=== PATIENT | male | born 1945 | race Caucasian/White ===

== ENCOUNTER 2017-01-06 12:32 | Inpatient (IN) | payer MEDICARE ==
[~2017-01-06] VITALS: Ht 165.1 cm; Wt 67.2 kg
--- NOTE | ~2017-01-06 | WRIGHTHP ---
[place], [place] PATIENT HISTORY AND PHYSICAL EXAM NAME: SAADIA VALADEZ [facility] #: [id number] UNIT #: [id number] ROOM: 415 DOCTOR: MERRY EAST MD BIRTHDATE: [birth year] DOS: 01/06/2017 HISTORY OF PRESENT ILLNESS: The patient is a 71-year-old gentleman with a past medical history of: 1. Severe underlying COPD and chronic respiratory failure with oxygen dependence. 2. Diastolic type congestive heart failure. 3. Benign essential hypertension. 4. History of rheumatoid arthritis. 5. Benign essential hypertension. 6. 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 7. Advanced COPD. The patient presented to the Emergency Department with 3-day complaints of increasing shortness of breath, cough, and wheezing. The patient was seen by Dr. Richard Goodman in the Emergency Department, and after initial treatment with antibiotic, oxygen, and nebulizer treatment, he was recommended for admission and further management. After admission, the patient stated he has some pain in his right lower ribs with coughing and he has been wheezing and short of breath for about 3 days. No other GI or urinary symptoms. No dizziness or fainting episodes. REVIEW OF SYSTEMS: LUNGS: Increasing shortness of breath and wheezing and cough. GASTROINTESTINAL: No nausea, vomiting, diarrhea, or constipation. CARDIOVASCULAR: No chest pain except for some pain in the right lower ribs with cough only. No palpitations. FAMILY HISTORY: Noncontributory. ALLERGIES: KNOWN ALLERGIES TO PENICILLIN AND IBUPROFEN. HOME MEDICATIONS: Omeprazole, lisinopril, amlodipine, latanoprost eyedrops, prednisone, DuoNeb. PHYSICAL EXAMINATION: GENERAL: Alert, oriented x 3, weak looking, emaciated. HEENT AND NECK: Extraocular movements are intact. Sclerae are anicteric. Oral mucosa is moist and clean. No obvious facial weakness. Neck is supple without any lymphadenopathy. No thyromegaly. No JVD. No carotid arterial bruits. LUNGS: Decreased breath sounds and expiratory wheezing on lung auscultation. CARDIOVASCULAR SYSTEM: Heart rate is regular in rate and rhythm. S1 and S2 normally audible. No significant murmur or any other abnormal cardiac sounds. ABDOMEN: Soft, nontender. No obvious organomegaly. Bowel sounds are present. No obvious herniation. EXTREMITIES: Without significant cyanosis or edema. Warm to touch. CENTRAL NERVOUS SYSTEM: Alert and oriented x 3. Cranial nerves II-XII are intact. Speech is normal. The patient is able to move all extremities. Normal muscle strength. Deep tendon reflexes are equal on both sides. Plantars were downgoing. [place], [place] PATIENT HISTORY AND PHYSICAL EXAM NAME: SAADIA VALADEZ UNIT #: [id number] ROOM: 415 DOCTOR: MERRY EAST MD BIRTHDATE: [birth year] LABORATORY DATA: Chest x-ray without acute abnormality, just showing COPD. No pneumonic infiltrates. Normal serum electrolytes, bilirubin, and liver enzymes. PT, PTT were baseline. IMPRESSION: 1. The patient with acute over chronic respiratory failure with exacerbation of severe underlying chronic obstructive pulmonary disease with oxygen dependence. Will be treated with DuoNeb, oxygen, Solu-Medrol, and azithromycin, and he will be monitored closely on the intermediate monitored bed. 2. Generalized disability and failure to thrive. We will take bedsore precautions, use air mattress, every 2-hour turning, take fall precautions, and consult physical therapy. 3. Rheumatoid arthritis. The patient on methotrexate, which will be held back for now because of his acute infection until it resolves. 4. Benign essential hypertension. Blood pressures to be monitored and treated. 5. Gastroesophageal reflux disease and esophagitis, asymptomatic. No heartburns. The patient takes omeprazole, which was continued. MERRY EAST MD CM:HISPHYS:PATIENT HISTORY AND PHYSICAL EXAMINATION [id number] MERRY EAST MD 01/06/17 1606 interface
--- NOTE | ~2017-01-06 | DS ---
[place], [place] DISCHARGE SUMMARY NAME: SAADIA VALADEZ [facility] #: [id number] UNIT #: [id number] ROOM: 415 DOCTOR: MERRY EAST MD BIRTHDATE: [birth year] Admitted: 01/06/17 Discharged: 01/11/17 DISCHARGE DIAGNOSES: 1. Exacerbation of severe underlying chronic obstructive pulmonary disease, improved with treatment. 2. Acute over chronic respiratory failure as mentioned above. 3. Rheumatoid arthritis. 4. Acute sinusitis, improving with treatment. 5. Acute maxillary sinusitis. 6. Benign essential hypertension. 7. Generalized disability, advanced lung disease and adult failure to thrive, gastroesophageal reflux disease and esophagitis. 8. Diastolic type congestive heart failure, compensated. 9. Bullous disease of the right lower lung, chronic related to chronic obstructive pulmonary disease. 10. Benign essential hypertension. HOSPITAL COURSE: 1. The patient presented to the Emergency Department with 3 days, complains of some increasing shortness of breath, cough, wheezing and was seen by Dr. Goodman in the ER. The patient was diagnosed as having acute over chronic respiratory failure with exacerbation of chronic obstructive pulmonary disease and was started on treatment with corticosteroids, oxygen, nebulizer treatments, and antibiotics and he gradually improved. The patient was started on physical therapy and he was able to ambulate independently in the hallways. The patient's breathing has gradually improved with treatment and finally he is going home on tapering down dose of corticosteroids and doxycycline and to be seen by his PCP, Dr. Rees on Monday. 2. Diastolic type CHF, compensated. Serum electrolytes, BUN, and creatinine were monitored. 3. Benign essential hypertension with controlled blood pressures all treatment was continued. 4. Gastroesophageal reflux disease and esophagitis, asymptomatic with treatment. 5. The patient has advanced lung disease and failure to thrive; recurrent admissions are possible for the same diagnosis because of advanced disability and advanced lung disease. LABORATORY DATA: Hemoglobin of 14, white cell count of 5000, no left shift. Blood cultures were negative. Sputum cultures were also negative except for yeast. DISCHARGE MANAGEMENT: Metoprolol 12.5 mg b.i.d., amlodipine 10 mg a day, prednisone 5 mg a day, lisinopril 20 mg a day, omeprazole 20 mg a day, Medrol Dosepak, latanoprost eye drops one drop each eye at bedtime, DuoNeb every 6 hours. The patient also seen by his medical records clerk, Dr. Call, who recommended a cardiac stress test but the patient refused it and now it will be scheduled as an outpatient when he follows up with his PCP, Dr. Alecia Rees and he will also follow up with his medical records clerk, Dr. Call, who will arrange for the cardiac stress test. The patient is presently asymptomatic, no chest pains and I also asked him to return immediately to the ER if he develops any chest tightness, pain or chest discomfort. [place], [place] DISCHARGE SUMMARY NAME: SAADIA VALADEZ UNIT #: [id number] ROOM: 415 DOCTOR: MERRY EAST MD BIRTHDATE: [birth year] MERRY EAST MD CM:DISCHARG [id number] MERRY EAST MD 01/12/17 1735 CARLITO COLVIN MIS.R
--- NOTE | ~2017-01-06 | PR ---
[place], [place] PROGRESS NOTE NAME: SAADIA VALADEZ UNIT #: [id number] ROOM: 415 DOCTOR: MERRY EAST MD BIRTHDATE: [birth year] DOS: 01/09/2017 SUBJECTIVE: The patient is improving, but still short of breath and wheezing. OBJECTIVE: VITAL SIGNS: Blood pressure 149/76, heart rate 93 beats per minute, breathing 21 times per minute, temperature 98 degrees Fahrenheit. GENERAL APPEARANCE: The patient is alert and oriented x 3, in no visible distress. Generalized weakness, HEENT AND NECK: Exam within normal limits. CARDIOVASCULAR SYSTEM: Heart rate is regular in rate and rhythm. S1 and S2 normally audible. LUNGS: Expiratory wheezing. ABDOMEN: Soft, nontender. No obvious organomegaly. Bowel sounds are present. EXTREMITIES: Without significant cyanosis or edema. IMPRESSION: 1. The patient with acute over chronic respiratory failure with exacerbation of severe underlying chronic obstructive pulmonary disease with wheezing, is improving, but he is not ready for discharge to home yet. I will give him 1 more day of continued treatment with DuoNebs, Solu-Medrol and antibiotics. 2. Rheumatoid arthritis. The patient's methotrexate has been put on hold because of his present infection. 3. Diastolic type congestive heart failure, compensated. 4. Gastroesophageal reflux disease and esophagitis, asymptomatic. 5. Generalized disability and failure to thrive. The patient ambulating in the hallways to maintain his strength. 6. Benign essential hypertension treated and controlled. 7. Acute sinusitis, being treated with antibiotics. MERRY EAST MD CM:PNTRANS [phone] MERRY EAST MD 01/10/178 interface
--- NOTE | ~2017-01-06 | PR ---
[place], [place] PROGRESS NOTE NAME[id number] UNIT #: [id number] ROOM: 415 DOCTOR: MERRY EAST MD BIRTHDATE: [birth year] DOS: 01/07/2017 SUBJECTIVE: The patient is complaining of some nasal and sinus congestion, otherwise his breathing is gradually improving. OBJECTIVE: VITAL SIGNS: Blood pressure 157/71, heart rate of 85 beats per minute, breathing 18 times per minute, temperature 98 degrees Fahrenheit. GENERAL APPEARANCE: The patient is alert and oriented x 3, in no visible distress. Generalized weakness. HEENT AND NECK: Exam within normal limits. LUNGS: Somewhat decreased breath sounds, slight expiratory wheezing on lung auscultation. CARDIOVASCULAR SYSTEM: Heart rate is regular in rate and rhythm. S1 and S2 normally audible. ABDOMEN: Soft, nontender. No obvious organomegaly. Bowel sounds are present. EXTREMITIES: Without significant cyanosis or edema. IMPRESSION: 1. The patient with acute over chronic respiratory failure with exacerbation of severe underlying chronic obstructive pulmonary disease, being treated with DuoNebs, oxygen, Solu-Medrol and azithromycin. He is clinically improving. 2. The patient with acute sinusitis which is being covered with antibiotics. 3. Rheumatoid arthritis. The patient was taken off methotrexate while he is being treated for infection and bronchitis. 4. Benign essential hypertension with somewhat elevated blood pressures. The patient is presently taking lisinopril and amlodipine. I will increase the dose of amlodipine to 5 mg a day to better control his blood pressures. 5. Generalized disability, weakness and adult failure to thrive. We are taking bedsore precautions. 6. Gastroesophageal reflux disease and esophagitis, asymptomatic. 7. Diastolic type congestive heart failure, compensated. MERRY EAST MD CM:PNTRANS [phone] MERRY EAST MD 01/08/17149 interface
--- NOTE | ~2017-01-06 | CON ---
[place], [place] REPORT OF CONSULTATION NAME: SAADIA VALADEZ [facility] #: [id number] UNIT #: [id number] ROOM: 415 [facility] [birth year] DOS: 01/10/2017 HISTORY OF PRESENT ILLNESS: The patient is a 71-year-old gentleman. I was consulted because the patient had 3-5 beat run of ventricular tachycardia, asymptomatic yesterday. The patient does have a history of bullous disease of the right lower lobe of the lung, advanced COPD, benign hypertension, history of rheumatoid arthritis and history of diastolic heart failure. The patient was totally asymptomatic with this. He was admitted on 01/06/2017 with severe COPD exacerbation and is being treated for the same thing. The patient refuses to have any kind of stress test at this point. He says that he does have a history previously of irregular heartbeat. He used to smoke about 3 packs per day and has cut down since. PAST MEDICAL HISTORY: Advanced COPD, hypertension, hyperlipidemia, diastolic type of heart failure, bullous disease of the right lower lobe. HOME MEDICATIONS: Omeprazole, lisinopril, amlodipine, prednisone and DuoNeb. FAMILY HISTORY: Noncontributory. ALLERGIES: PENICILLIN and IBUPROFEN. REVIEW OF SYSTEMS: CONSTITUTIONAL: No fever, no chills. HEENT: No visual disturbances or hearing problems. CARDIOVASCULAR: No chest discomfort. GASTROINTESTINAL: No nausea, no vomiting. GENITOURINARY SYSTEM: No dysuria, hematuria. RESPIRATORY: Does have significant shortness of breath and dyspnea on exertion and wheezing. PHYSICAL EXAMINATION: GENERAL: The patient is alert, oriented x3. HEENT: Unremarkable. VITAL SIGNS: Blood pressure is 140/80. NECK: Supple, no JVD. LUNGS: Extremely diminished air entry. HEART: Heart sounds are regular. Urine output is adequate. ABDOMEN: Soft. NEUROLOGICAL: Stable. LABORATORY DATA: Hemoglobin 14, hematocrit 48.1. Electrolytes are pending today. The last BUN and creatinine was within normal limits. EKG shows right bundle branch block with nonspecific ST-T changes. IMPRESSION: The patient with a few runs of ventricular tachycardia, hypertension, tobacco abuse, hyperlipidemia, was strongly recommend a Lexiscan Cardiolite stress test. The last echocardiogram done by me showed well-preserved systolic function. [place], [place] REPORT OF CONSULTATION NAME: SAADIA VALADEZ UNIT #: [id number] ROOM: 415 DOCTOR: SAMANTHA ALEXANDER MD BIRTHDATE: [birth year] RECOMMENDATIONS: Add a small dose of beta blockers to the current regimen. Selective beta blockers because of severe chronic obstructive pulmonary disease like metoprolol 12.5 b.i.d. Add a baby aspirin to the current regimen. The patient is refusing a stress test. Check electrolytes and magnesium, and we will follow up. SAMANTHA ALEXANDER MD CM:CONSTR:REPORT OF CONSULTATION 0738 01/10/17 0844 interface
--- NOTE | ~2017-01-06 | PN ---
[place], [place] PROGRESS NOTE NAME[id number] UNIT #: [id number] ROOM: 415 DOCTOR: MERRY EAST MD BIRTHDATE: [birth year] DATE: 01/10/17 SUBJECTIVE: The patient is breathing better, but still has wheezing. OBJECTIVE: VITAL SIGNS: Blood pressure 134/70, heart rate of 86 beats per minute, breathing is 19 times per minute, temperature 98 degrees Fahrenheit. LUNGS: Mild expiratory wheezing. GENERAL APPEARANCE: The patient is alert and oriented x 3, in no visible distress. HEENT AND NECK: Exam within normal limits. CARDIOVASCULAR SYSTEM: Heart rate is regular in rate and rhythm. S1 and S2 normally audible. ABDOMEN: Soft, nontender. No obvious organomegaly. Bowel sounds are present. EXTREMITIES: Without significant cyanosis or edema. IMPRESSION: 1. Exacerbation of severe underlying chronic obstructive pulmonary disease with chronic shortness of breath, acute over chronic respiratory failure, sputum cultures have been negative, blood cultures also have been negative. The patient's breathing has gradually been improving and hopefully I will be able discharge him to home tomorrow after treatment with corticosteroids, bronchodilator, antibiotics and oxygen. The patient has been ambulating in the hallways. 2. Benign essential hypertension with controlled blood pressures with metoprolol and amlodipine and he also takes lisinopril. 3. Gastroesophageal reflux disease and esophagitis, asymptomatic with omeprazole. MERRY EAST MD CM:PNTRANS [phone] MERRY EAST MD 01/12/171755 CARLITO COLVIN.ANANDR
--- NOTE | ~2017-01-06 | PR ---
[place], [place] PROGRESS NOTE [id number] UN[facility] #: [id number] ROOM: 415 DOCTOR: MERRY EAST MD BIRTHDATE: [birth year] DOS: 01/08/2017 SUBJECTIVE: The patient still has wheezing and some shortness of breath, although overall he is improving. OBJECTIVE: VITAL SIGNS: Blood pressure 141/69, heart rate 94 beats per minute, breathing 20 times per minute, temperature 98 degrees Fahrenheit. GENERAL APPEARANCE: The patient is alert and oriented x 3, in no visible distress. HEENT AND NECK: Exam within normal limits. CARDIOVASCULAR SYSTEM: Heart rate is regular in rate and rhythm. S1 and S2 normally audible. LUNGS: Expiratory wheezing on lung auscultation and somewhat decreased breath sounds. ABDOMEN: Soft, nontender. No obvious organomegaly. Bowel sounds are present. EXTREMITIES: Without significant cyanosis or edema. IMPRESSION: 1. Sputum cultures growing normal bacteria. Blood cultures have been negative. 2. Acute over chronic respiratory failure with exacerbation of severe underlying chronic obstructive pulmonary disease being treated with antibiotics, Solu-Medrol, oxygen, DuoNebs and he is clinically improving, but he is still not at his baseline yet. 3. Rheumatoid arthritis. The patient normally on methotrexate, which was stopped because of his infection. 4. Acute sinusitis being covered with antibiotics. 5. Benign essential hypertension with controlled blood pressure with treatment. 6. Generalized disability with adult failure to thrive. The patient working with physical therapy. 7. Gastroesophageal reflux disease and esophagitis, asymptomatic. 8. Diastolic type congestive heart failure, compensated. MERRY EAST MD CM:PNTRANS [phone] MERRY EAST MD 01/09/17 0337 interface
[~2017-01-06 12:32] MED LIST: ADVAIR 250/501 EA INH; ALEVE220 MG PO; AVPAK AZITHROM250 M1 PO; AZO-SULFISOXAZO1 TA1 PO; BACTRIM DS 8001 TA1 PO; CIPRO500 MG PO; DELTASONE10 MG PO; DELTASONE2.5 M1 PO; DELTASONE5 MG PO; DOK100 MG PO; DOXYCYCLINE HY100 M5 PO; DOXYCYCLINE100 MG PO; DUONEB 3 MG/3 ML3 M1 INH; FENTANYL12 MCG/HR T; FLEXERIL10 MG PO; FOLIC ACID1 MG PO; HUMIRA40 MG/0.1 SC; HYCODAN,HYDROME10 ML PO; HYDR25T; HYDROXYCHLOROQ200 M1 PO; K-Dur 20MEQ20 MEQ PO; LASIX20 MG PO; LASIX40 MG PO; LEVOFLOXACIN500 MG PO; LEXAPRO10 MG PO; LIDODERM 5% PATC1 EA T; LISINOPRIL20 MG PO; MEDROL DOSEPAK4 MG PO; METHOTREXATE S2.5 MG PO; METHOTREXATE2.5 M1 PO; NORCO 325 MG-51 TAB PO; NORVASC2.5 MG PO; OXYCODONE AND A1 TAB PO; OXYGEN NAS; PEPCID20 MG PO; PERCOCET 325 MG1 TA2 PO; PERCOCET 325 MG1 TA5 PO; PLAQUENIL200 MG PO; PREDNICOT10 MG PO; PREDNICOT20 MG PO; PREDNISONE10 MG PO; PREDNISONE5 MG PO; PRILOSEC20 MG PO; TREXALL10 MG PO; TYLENOL ARTHRI650 M1 PO; TYLENOL WITH CO1 TA1 PO; VENTOLIN 02.5 MG/3 M INH; Ventolin 02.5 MG/3 M INH; XALATAN 0.005%2.5 ML INTRAOC; [UNRECOGNIZED DRUG - OTHER] IM
[2017-01-06 12:44] VITALS: BP 162/78
[2017-01-06 13:02] LABS: BASO # 0.1 10*3/uL (0.0-0.1); BASO % 0.7 % (0.0-1.0); EOS # 0.1 10*3/uL (0.0-0.4); EOS % 0.6 % (1.0-4.0); HEMATOCRIT 44.9 % (42.0-52.0); HEMOGLOBIN 14.9 g/dl (14.0-18.0); LYMPH # 1.7 10*3/uL (1.3-4.4); LYMPH % 17.5 % (27.0-41.0); MEAN CELL VOLUME 94.1 fl (80.0-94.0); MEAN CORPUSCULAR HGB 31.2 pg (27.0-31.0); MEAN CORPUSCULAR HGB CONC 33.2 g/dl (33.0-37.0); MEAN PLATELET VOLUME 8.8 fl (9.6-12.3); MONO # 0.5 10*3/uL (0.1-1.0); MONO % 5.2 % (3.0-9.0); NEUT # 7.3 10*3/uL (2.3-7.9); NEUT % 75.8 % (47.0-73.0); PLATELET COUNT AUTOMATED 265 10*3/uL (130-400); RED BLOOD COUNT 4.77 10*6/uL (4.50-5.90); RED CELL DISTRI WIDTH 14.3 % (0-14.5); WHITE BLOOD COUNT 9.7 10*3/uL (4.8-10.8)
[2017-01-06 13:11] LABS: PROTHROMBIN TIME 10.8 SECONDS (9.0-12.4)
[2017-01-06 13:17] LABS: ALBUMIN 3.6 gm/dl (3.1-4.5); ALKALINE PHOSPHATASE 70 U/L (45-117); BILIRUBIN, TOTAL 0.4 mg/dl (0.2-1.0); BUN 10 mg/dl (7-24); C-REACTIVE PROTEIN 1.16 MG/DL (0-0.3); CARBON DIOXIDE 26 mmol/L (21-32); CHLORIDE 104 mmol/L (98-107); CKMB 1.4 ng/ml (0.5-3.6); CPK 51 U/L (39-308); EST GLOM FILT AFRICAN AMERICAN > 60 ml/min; GLUCOSE 100 mg/dL (65-99); POTASSIUM 4.4 mmol/L (3.5-5.1); SGOT/AST 15 IU/L (3-35); SGPT/ALT 18 U/L (12-78); SODIUM 138 mmol/L (136-145); TOTAL PROTEIN 6.8 gm/dL (6.4-8.2)
[2017-01-06 13:20] LABS: TROPONIN I < 0.015 ng/ml (<0.045)
[2017-01-06 13:30] VITALS: BP 157/81
[2017-01-06 14:00] VITALS: BP 176/90
[2017-01-06] MEDS ORDERED: PREDNISONE5 MG PO (15:31)
[2017-01-06 16:38] VITALS: BP 156/87
[2017-01-06 20:00] VITALS: BP 160/89
[2017-01-07] VITALS: BP 168/78
[2017-01-07 06:23] LABS: BASO % 0.2 % (0.0-1.0); HEMATOCRIT 42.8 % (42.0-52.0); LYMPH # 1.2 10*3/uL (1.3-4.4); LYMPH % 25.1 % (27.0-41.0); MEAN CELL VOLUME 94.1 fl (80.0-94.0); MEAN CORPUSCULAR HGB 30.8 pg (27.0-31.0); MEAN CORPUSCULAR HGB CONC 32.7 g/dl (33.0-37.0); MONO # 0.2 10*3/uL (0.1-1.0); NEUT # 3.3 10*3/uL (2.3-7.9); NEUT % 70.5 % (47.0-73.0); PLATELET COUNT AUTOMATED 256 10*3/uL (130-400); RED BLOOD COUNT 4.55 10*6/uL (4.50-5.90); WHITE BLOOD COUNT 4.7 10*3/uL (4.8-10.8)
[2017-01-07 08:00] VITALS: BP 175/86
[2017-01-07 12:00] VITALS: BP 160/62
[2017-01-07 16:00] VITALS: BP 157/71
[2017-01-07 20:00] VITALS: BP 148/69
[2017-01-08] VITALS: BP 167/71
[2017-01-08 08:00] VITALS: BP 150/62
[2017-01-08 12:00] VITALS: BP 141/69
[2017-01-08 16:00] VITALS: BP 155/71
[2017-01-08 20:00] VITALS: BP 155/77
[2017-01-09] VITALS: BP 149/76
[2017-01-09 08:00] VITALS: BP 167/71
[2017-01-09 12:00] VITALS: BP 147/65
[2017-01-09 16:00] VITALS: BP 156/55
[2017-01-09 20:00] VITALS: BP 149/75
[2017-01-10] VITALS: BP 140/80
[2017-01-10 08:00] VITALS: BP 166/80
[2017-01-10 08:05] LABS: MAGNESIUM 2.3 mg/dL (1.5-2.1); POTASSIUM 4.2 mmol/L (3.5-5.1)
[2017-01-10 12:00] VITALS: BP 134/70
[2017-01-10 16:00] VITALS: BP 136/66
[2017-01-10 20:00] VITALS: BP 142/68
[2017-01-11] VITALS: BP 135/70
[2017-01-11 08:00] VITALS: BP 154/83
[2017-01-11] MEDS ORDERED: MEDROL DOSEPAK4 MG PO (10:35)
[2017-01-11 12:00] VITALS: BP 154/80
== END 2017-01-11 13:16 | disposition home or self-care (01) | DRG 871 ==
LOC: ED 12:32 → 4E 13:53 → EDHOLD 13:53 → 4E 14:19
PROVIDERS: Emergency Medicine; Internal Medicine; Internal Medicine Cardiovascular Disease
DX: A41.9 Sepsis, unspecified organism (principal); J18.9 Pneumonia, unspecified organism; J96.20 Acute and chronic respiratory failure, unspecified whether with hypoxia or hypercapnia; I11.0 Hypertensive heart disease with heart failure; I50.30 Unspecified diastolic (congestive) heart failure; Z99.81 Dependence on supplemental oxygen; J44.0 Chronic obstructive pulmonary disease with (acute) lower respiratory infection; J44.1 Chronic obstructive pulmonary disease with (acute) exacerbation; M06.9 Rheumatoid arthritis, unspecified; J01.00 Acute maxillary sinusitis, unspecified; E78.5 Hyperlipidemia, unspecified; R62.7 Adult failure to thrive; K21.0 Gastro-esophageal reflux disease with esophagitis; Z88.0 Allergy status to penicillin; Z88.6 Allergy status to analgesic agent; Z79.899 Other long term (current) drug therapy

== ENCOUNTER → 2017-03-08 | Day surgery (SDC) | payer MEDICARE ==
--- NOTE | ~2017-03-08 | O ---
[place], [place] OPERATIVE NOTE NAME: SAADIA VALADEZ [facility] UNIT #: [id number] ROOM: DOCTOR: ELVIRA MITCHELL MD BIRTHDATE: [birth year] DOS: 03/08/2017 PREOPERATIVE DIAGNOSIS: Cataract, left eye. POSTOPERATIVE DIAGNOSIS: Cataract, left eye. OPERATION: Extracapsular cataract extraction by phacoemulsification with posterior chamber intraocular lens implantation, left eye. ANESTHESIA: Monitored standby. OPERATIVE FINDINGS AND PROCEDURE: 2% Xylocaine topical anesthetic gel was applied to the eye in the preop area. The patient was taken to the operating room and prepped and draped in the standard fashion for sterile intraocular surgery. A time out procedure was performed verifying correct patient, correct site and corrects lens with Virginie Mitchell M.D. The operating microscope was swung into position and the lid speculum was inserted. Using a Asiya paracentesis blade, a paracentesis was made through clear cornea. Viscoelastic was used to fill the anterior chamber. Using a metal keratome a 2.4 mm self-sealing clear corneal cataract incision was made temporally at the limbus. Using a pre-bent 25 gauge cystotome needle, a standard continuous curvilinear capsulorrhexis was performed. The anterior capsule was removed with forceps. The lens nucleus was hydrodissected and phacoemulsified in the posterior chamber. Cortical material was removed with the irrigation aspiration hand piece and the posterior capsule was then polished with a curet under irrigation. The posterior chamber and capsular bag were filled with viscoelastic. A posterior chamber intraocular lens manufactured by: [employer], Model #[id number], and 23.0 diopters in strength were then inserted into the posterior chamber and within the capsular bag using the lens cartridge and injector system. Viscoelastic was removed using the irrigation aspiration handpiece. The anterior chamber was filled with balanced salt solution through the paracentesis. Both the paracentesis site and cataract incisions were hydrated with BSS and verified to be water-tight and self-sealing. The incision checked to be water-tight using a Weck-Kaela sponge. The integrity of the cataract wound and ocular tension were checked. Lid speculum and drapes were removed. The patient was transferred from the operating room to the recovery room in satisfactory condition. [place], [place] OPERATIVE NOTE NAME: SAADIA VALADEZ UNIT #: [id number] ROOM: DOCTOR: ELVIRA MITCHELL MD BIRTHDATE: [birth year] ELVIRA MITCHELL MD CM:OPRECORD:OPERATIVE NOTE [id number] ELVIRA MITCHELL MD 03/08/17 1802 interface
[2017-03-08 12:05] VITALS: BP 143/68
== END | disposition home or self-care (01) ==
LOC: SDC 03-07 14:00
DX: H26.9 Unspecified cataract (principal); I10 Essential (primary) hypertension; J44.9 Chronic obstructive pulmonary disease, unspecified; M06.9 Rheumatoid arthritis, unspecified; I50.9 Heart failure, unspecified; Z86.14 Personal history of Methicillin resistant Staphylococcus aureus infection; Z98.890 Other specified postprocedural states; Z82.49 Family history of ischemic heart disease and other diseases of the circulatory system; F17.210 Nicotine dependence, cigarettes, uncomplicated

== ENCOUNTER 2017-10-26 12:48 | Inpatient (IN) | payer MEDICARE ==
[~2017-10-26] VITALS: Ht 160 cm; Wt 60.0 kg
--- NOTE | ~2017-10-26 | WRIGHTHP ---
[place], [place] PATIENT HISTORY AND PHYSICAL EXAM NAME: SAADIA VALADEZ [facility] #: [id number] UNIT #: [id number] ROOM: 412 DOCTOR: RAÚL OLIVEIRA MD BIRTHDATE: [birth year] DOS: 10/26/2017 HISTORY OF PRESENT ILLNESS: The patient is 72 years old. The patient comes in with complaints of abdominal pain. The patient says that yesterday morning he woke up and had severe abdominal pain, mostly in the left side of the abdomen. Whenever he coughs, this pain was getting worse and he had a lump in the lower part of his abdomen, so he got worried and decided to come in. He denies having any chest pains, palpitations, shortness of breath. Does not have any fever or chills. He has not been eating any corn or popcorn for the last few days. After he came to the Emergency Room, he received some pain medications and his pain has resolved. He does not have any pain this morning and he is hungry and wants to eat. PAST MEDICAL HISTORY: Significant for: 1. Multiple hospitalizations, the last one was in 2017 with acute exacerbation of chronic obstructive pulmonary disease. 2. History of respiratory failure. 3. Rheumatoid arthritis. 4. Benign hypertension. 5. Gastroesophageal reflux disease. 6. History of compression fractures of the lumbar vertebrae with chronic back pain. MEDICATIONS: He is currently on breathing treatments with DuoNeb q. 4 hours., amlodipine 2.5 daily, folic acid 1 mg daily, gabapentin 300 mg at bedtime, lisinopril 20 daily, methotrexate, Prilosec 20 daily, prednisone 5 mg daily. SOCIAL HISTORY: Significant for smoking history of about half a pack of cigarettes a day. Denies using any alcohol. He lives at home alone. PHYSICAL EXAMINATION: VITAL SIGNS: Blood pressure is 153/69, pulse of 90, respirations 20, temperature 98.4. LUNGS: Diminished breath sounds. No wheezes, rales or rhonchi heard. HEART: Regular. ABDOMEN: Soft, nontender. Bowel sounds are present. EXTREMITIES: Without any edema. LABORATORY DATA: White cell count is 12.9 on admission. Urinalysis was positive for infection, which is reflux. Comprehensive was within normal limits. Lipase is normal. CT of the abdomen and pelvis shows diverticulosis of the sigmoid colon and pneumoperitoneum of the right upper quadrant anterior to the liver margin. ASSESSMENT AND PLAN: 1. The patient presents with acute abdominal pain, possible early mild diverticulitis, especially with the white cell count elevation. The patient is placed on IV antibiotics and kept n.p.o. 2. Possibility of pneumoperitoneum. Acute abdominal series will be ordered. Consultation with surgery obtained. I have ordered his home medications, but [place], [place] PATIENT HISTORY AND PHYSICAL EXAM [facility]: [id number] UN[facility] #: [id number] ROOM: [facility] DOCTOR: RAÚL OLIVEIRA MD BIRTHDATE: [birth year] will hold off until his acute abdominal series comes clean. 3. Benign hypertension, controlled. RAÚL OLIVEIRA MD CM:HISPHYS:PATIENT HISTORY AND PHYSICAL EXAMINATION 0848 7 RAÚL OLIVEIRA MD 10/27/17 0907 interface
--- NOTE | ~2017-10-26 | DS ---
[place], [place] DISCHARGE SUMMARY [id number] UN[facility] #: [id number] ROOM: 412 DOCTOR: RAÚL OLIVEIRA MD BIRTHDATE: [birth year] DOS: 10/30/2017 DIAGNOSES: 1. Acute diverticulitis. 2. Pneumoperitoneum. 3. Chronic obstructive pulmonary disease. 4. Rheumatoid arthritis. 5. Benign hypertension. 6. History of compression fractures. MEDICATIONS ON DISCHARGE: Will be the same as in admission. The only new prescription given was Cipro 500 b.i.d. for 7 days and Flagyl 500 t.i.d. for 7 days. Rest of the home meds are lisinopril 20, folic acid 1 mg, DuoNeb q. 6 hours p.r.n., methotrexate 20 weekly, omeprazole 20 daily, amlodipine 2.5 daily, prednisone 5 daily, gabapentin 300 at bedtime, albuterol, ProAir 1 puff twice a day p.r.n., latanoprost eyedrops. HOSPITAL COURSE: This patient is very well known to us, comes in with complaints of quite a lot of abdominal pain. Please refer to H and P for details. After admission, the patient was placed on IV antibiotics. CT scan showed diverticulosis, but no acute diverticulitis was noted, but the patient had classic symptoms and signs on examination, so he was treated as a diverticulitis. A pneumoperitoneum was seen. Dr. Foley was consulted. Acute abdominal series was ordered, which was later canceled. The patient has had no changes of acute abdomen. Clinically, the patient is slowly improving without any new problems. White cell count has normalized. The plan therefore is to discharge him to home today to follow up as an outpatient. He will require a colonoscopy as an outpatient. RAÚL OLIVEIRA MD CM:DISCHARG [id number] RAÚL OLIVEIRA MD 10/30/17 0913 interface
--- NOTE | ~2017-10-26 | PR ---
[place], [place] PROGRESS NOTE [id number] UN[facility] #: [id number] ROOM: 412 DOCTOR: MERRY EAST MD BIRTHDATE: [birth year] DOS: 10/28/2017 SUBJECTIVE: The patient says he still has some left lower quadrant pains, but they continued to improve. OBJECTIVE: GENERAL APPEARANCE: The patient is alert and oriented x 3, in no visible distress. VITAL SIGNS: Blood pressure 140/70, heart rate 64 beats per minute, breathing 18 times per minute, temperature 98.4 degrees Fahrenheit. HEENT AND NECK: Exam within normal limits. CARDIOVASCULAR SYSTEM: Heart rate is regular in rate and rhythm. S1 and S2 normally audible. LUNGS: Clear to auscultation. ABDOMEN: Some left lower quadrant tenderness. EXTREMITIES: Without significant cyanosis or edema. IMPRESSION: 1. The patient with acute left lower quadrant abdominal pains and diverticulitis along with leukocytosis, is improving with treatment and intravenous antibiotics. Dr. Foley, the surgeon, is also following. 2. Benign essential hypertension with controlled blood pressures. 3. Left inguinal hernia, unobstructed, which required surgery, which needs to be electively scheduled later on. 4. CT of the abdomen and pelvis showing severe diverticulosis of the sigmoid colon. MERRY EAST MD CM:PNTRANS [id number] MERRY EAST MD 10/28/17 2311 interface
--- NOTE | ~2017-10-26 | PR ---
[place], [place] PROGRESS NOTE NAME: SAADIA VALADEZ [facility] #: [id number] UNIT #: [id number] ROOM: 412 DOCTOR: RAÚL OLIVEIRA MD BIRTHDATE: [birth year] DOS: SUBJECTIVE: The patient is doing fine this morning. He is walking around, ate good breakfast, minimal discomfort in the left lower quadrant. OBJECTIVE: VITAL SIGNS: Graphic trend shows pressure 154/80, pulse of 81, respirations 20, temperature 97.7. LUNGS: Diminished breath sounds, clear. HEART: Regular. ABDOMEN: Obese, soft, some minimal tenderness in the left lower quadrant. EXTREMITIES: Without any edema. ASSESSMENT AND PLAN: 1. Acute diverticulitis. Even though the CT scan is negative, the patient has classic symptoms and signs of diverticulitis for which he is already on antibiotics. Blood cultures have come back negative and white cell count is normalized. He does not have any fever, so the plan is to discharge him to home today on p.o. antibiotics. Avoid corn, popcorn etc. discussed with the patient. 2. Pneumoperitoneum. No further workup planned. 3. Rheumatoid arthritis, good pain control with methotrexate. RAÚL OLIVEIRA MD CM:PNTRANS [id number] RAÚL OLIVEIRA MD 10/30/17 0936 interface
--- NOTE | ~2017-10-26 | PR ---
[place], [place] PROGRESS NOTE [id number] UN[facility] #: [id number] ROOM: 412 DOCTOR: MERRY EAST MD BIRTHDATE: [birth year] DOS: SUBJECTIVE: The patient walking around the hallways and he is complaining of significant constipation. For last few days, he has not moved his bowels. OBJECTIVE: VITAL SIGNS: Blood pressure 125/59, heart rate 80 beats per minute, breathing 20 times per minute, temperature 98 degrees Fahrenheit. GENERAL APPEARANCE: The patient is alert and oriented x 3, in no visible distress. HEENT AND NECK: Exam within normal limits. CARDIOVASCULAR SYSTEM: Heart rate is regular in rate and rhythm. S1 and S2 normally audible. LUNGS: Clear to auscultation. ABDOMEN: Soft, nontender. No obvious organomegaly. Bowel sounds are present. EXTREMITIES: Without significant cyanosis or edema. IMPRESSION: 1. The patient with acute sigmoid diverticulitis with left lower quadrant pains, continues to improve with treatment. 2. Left inguinal hernia unobstructed. Dr. Foley plans to take him for surgery within the next few weeks. 3. Benign essential hypertension with controlled blood pressures. MERRY EAST MD CM:PNTRANS 00 10 MERRY EAST MD 10/29/17 221 interface
[2017-10-26 13:14] VITALS: BP 165/85
[2017-10-26 13:52] LABS: BILIRUBIN NEGATIVE (NEGATIVE); BLOOD NEGATIVE (NEGATIVE); CLARITY CLEAR (CLEAR); COLOR YELLOW (YELLOW); GLUCOSE NEGATIVE (NEGATIVE); KETONE NEGATIVE (NEGATIVE); LEUKO ESTERASE TRACE (NEGATIVE); NITRITE NEGATIVE (NEGATIVE); SPECIFIC GRAVITY <= 1.005 (1.005-1.030); UROBILINOGEN 0.2 E.U./dl (0.2-1.0)
[2017-10-26 14:33] LABS: BASO # 0.1 10*3/uL (0.0-0.1); BASO % 0.7 % (0.0-1.0); EOS # 0.1 10*3/uL (0.0-0.4); EOS % 0.8 % (1.0-4.0); HEMATOCRIT 45.9 % (42.0-52.0); LYMPH # 1.6 10*3/uL (1.3-4.4); LYMPH % 12.7 % (27.0-41.0); MEAN CELL VOLUME 95.8 fl (80.0-94.0); MEAN CORPUSCULAR HGB 31.3 pg (27.0-31.0); MEAN CORPUSCULAR HGB CONC 32.7 g/dl (33.0-37.0); MEAN PLATELET VOLUME 8.8 fl (9.6-12.3); MONO # 0.7 10*3/uL (0.1-1.0); MONO % 5.1 % (3.0-9.0); NEUT # 10.4 10*3/uL (2.3-7.9); NEUT % 80.4 % (47.0-73.0); PLATELET COUNT AUTOMATED 247 10*3/uL (130-400); RED BLOOD COUNT 4.79 10*6/uL (4.50-5.90); RED CELL DISTRI WIDTH 13.9 % (0-14.5); WHITE BLOOD COUNT 12.9 10*3/uL (4.8-10.8)
[2017-10-26 14:34] LABS: RBC 0-2 rbc/hpf (0-2)
[2017-10-26 14:35] LABS: BACTERIA 1+; EPITHELIAL CELLS 0-2
[2017-10-26 14:48] LABS: ALBUMIN 3.7 gm/dl (3.1-4.5); ALKALINE PHOSPHATASE 67 U/L (45-117); BUN 14 mg/dl (7-24); CHLORIDE 101 mmol/L (98-107); CREATININE 0.92 mg/dL (0.70-1.30); LIPASE 100 U/L (73-393); POTASSIUM 4.2 mmol/L (3.5-5.1); SGOT/AST 17 IU/L (3-35); SGPT/ALT 17 U/L (12-78); SODIUM 139 mmol/L (136-145); TOTAL PROTEIN 7.2 gm/dL (6.4-8.2)
[2017-10-26 17:15] VITALS: BP 152/80
[2017-10-26 18:01] VITALS: BP 179/84
[2017-10-26] MEDS ORDERED: NEURONTIN300 MG PO (18:02)
[2017-10-26] MEDS ORDERED: PROAIR HFA8.5 GM INH (18:03)
[2017-10-26] MEDS ORDERED: XALATAN 0.005%2.5 ML INTRAOC (18:05)
[2017-10-26 18:40] VITALS: BP 179/84
[2017-10-26 20:00] VITALS: BP 146/72
[2017-10-27] VITALS: BP 143/65
[2017-10-27 06:18] LABS: BASO # 0.1 10*3/uL (0.0-0.1); BASO % 0.8 % (0.0-1.0); EOS # 0.2 10*3/uL (0.0-0.4); LYMPH % 32.4 % (27.0-41.0); MEAN CORPUSCULAR HGB 31.5 pg (27.0-31.0); MEAN CORPUSCULAR HGB CONC 33.2 g/dl (33.0-37.0); MEAN PLATELET VOLUME 8.8 fl (9.6-12.3); MONO # 0.8 10*3/uL (0.1-1.0); MONO % 8.7 % (3.0-9.0); NEUT # 5.1 10*3/uL (2.3-7.9); NEUT % 55.9 % (47.0-73.0); PLATELET COUNT AUTOMATED 213 10*3/uL (130-400); RED BLOOD COUNT 4.03 10*6/uL (4.50-5.90); RED CELL DISTRI WIDTH 13.7 % (0-14.5); WHITE BLOOD COUNT 9.1 10*3/uL (4.8-10.8)
[2017-10-27 06:37] LABS: HEMATOCRIT 38.3 % (42.0-52.0); HEMOGLOBIN 12.7 g/dl (14.0-18.0)
[2017-10-27 08:00] VITALS: BP 153/69
[2017-10-27 12:00] VITALS: BP 145/63
[2017-10-27 16:00] VITALS: BP 152/67
[2017-10-27 20:00] VITALS: BP 130/68
[2017-10-28] VITALS: BP 127/68
[2017-10-28 05:58] LABS: BASO # 0.1 10*3/uL (0.0-0.1); BASO % 0.9 % (0.0-1.0); EOS # 0.3 10*3/uL (0.0-0.4); EOS % 3.8 % (1.0-4.0); HEMATOCRIT 38.6 % (42.0-52.0); HEMOGLOBIN 12.4 g/dl (14.0-18.0); LYMPH # 3.2 10*3/uL (1.3-4.4); LYMPH % 39.7 % (27.0-41.0); MEAN CORPUSCULAR HGB 31.2 pg (27.0-31.0); MEAN CORPUSCULAR HGB CONC 32.1 g/dl (33.0-37.0); MEAN PLATELET VOLUME 8.7 fl (9.6-12.3); MONO # 0.7 10*3/uL (0.1-1.0); MONO % 9.2 % (3.0-9.0); NEUT # 3.7 10*3/uL (2.3-7.9); NEUT % 46.3 % (47.0-73.0); PLATELET COUNT AUTOMATED 219 10*3/uL (130-400); RED BLOOD COUNT 3.98 10*6/uL (4.50-5.90); RED CELL DISTRI WIDTH 13.8 % (0-14.5); WHITE BLOOD COUNT 8.1 10*3/uL (4.8-10.8)
[2017-10-28 06:12] LABS: BUN 9 mg/dl (7-24); CHLORIDE 108 mmol/L (98-107); CREATININE 0.86 mg/dL (0.70-1.30); POTASSIUM 3.8 mmol/L (3.5-5.1); SODIUM 143 mmol/L (136-145)
[2017-10-28 08:00] VITALS: BP 135/70
[2017-10-28 12:16] VITALS: BP 134/58
[2017-10-28 16:00] VITALS: BP 140/70
[2017-10-28 20:00] VITALS: BP 145/67
[2017-10-29] VITALS: BP 148/65
[2017-10-29 08:34] VITALS: BP 146/73
[2017-10-29 12:16] VITALS: BP 125/59
[2017-10-29 16:00] VITALS: BP 139/60
[2017-10-29 20:00] VITALS: BP 136/65
[2017-10-30] VITALS: BP 158/71
[2017-10-30 08:00] VITALS: BP 154/80
[2017-10-30] MEDS ORDERED: FLAGYL500 MG PO (08:52)
[2017-10-30] MEDS ORDERED: CIPRO500 MG PO (08:52)
[2017-10-30 12:00] VITALS: BP 150/76
== END 2017-10-30 13:06 | disposition home or self-care (01) | DRG 392 ==
LOC: ED 12:48 → 4E 16:46 → EDHOLD 16:46 → 4E 16:52
PROVIDERS: Emergency Medicine; Internal Medicine; Physician Assistant
DX: K57.32 Diverticulitis of large intestine without perforation or abscess without bleeding (principal); K66.8 Other specified disorders of peritoneum; J44.9 Chronic obstructive pulmonary disease, unspecified; M06.9 Rheumatoid arthritis, unspecified; I10 Essential (primary) hypertension; K21.9 Gastro-esophageal reflux disease without esophagitis; M54.9 Dorsalgia, unspecified; G89.29 Other chronic pain; F17.210 Nicotine dependence, cigarettes, uncomplicated; K40.90 Unilateral inguinal hernia, without obstruction or gangrene, not specified as recurrent; Z79.899 Other long term (current) drug therapy; Z88.0 Allergy status to penicillin; Z88.8 Allergy status to other drugs, medicaments and biological substances; Z82.49 Family history of ischemic heart disease and other diseases of the circulatory system

== ENCOUNTER 2017-11-27 10:40 | Emergency (ER) | payer MEDICARE ==
[~2017-11-27] VITALS: Wt 59.9 kg
[~2017-11-27 10:40] MED LIST changes: +FLAGYL500 MG PO; +NEURONTIN300 MG PO; +PROAIR HFA8.5 GM INH
[2017-11-27 10:47] VITALS: BP 134/81
== END 2017-11-27 11:42 | disposition home or self-care (01) ==
LOC: ED 10:40
DX: I80.8 Phlebitis and thrombophlebitis of other sites (principal); R03.0 Elevated blood-pressure reading, without diagnosis of hypertension; J44.9 Chronic obstructive pulmonary disease, unspecified; F17.200 Nicotine dependence, unspecified, uncomplicated; Z88.0 Allergy status to penicillin; Z88.6 Allergy status to analgesic agent; Z79.899 Other long term (current) drug therapy

== ENCOUNTER 2017-12-04 10:36 | Emergency (ER) | payer MEDICARE ==
[2017-12-04 10:58] LABS: BASO # 0.1 10*3/uL (0.0-0.1); BASO % 0.7 % (0.0-1.0); EOS # 0.1 10*3/uL (0.0-0.4); EOS % 1.3 % (1.0-4.0); HEMATOCRIT 47.7 % (42.0-52.0); HEMOGLOBIN 15.3 g/dl (14.0-18.0); LYMPH # 1.8 10*3/uL (1.3-4.4); LYMPH % 16.3 % (27.0-41.0); MEAN CELL VOLUME 95.2 fl (80.0-94.0); MEAN CORPUSCULAR HGB 30.5 pg (27.0-31.0); MEAN CORPUSCULAR HGB CONC 32.1 g/dl (33.0-37.0); MEAN PLATELET VOLUME 8.4 fl (9.6-12.3); MONO # 0.7 10*3/uL (0.1-1.0); MONO % 6.2 % (3.0-9.0); NEUT # 8.4 10*3/uL (2.3-7.9); NEUT % 75.1 % (47.0-73.0); PLATELET COUNT AUTOMATED 256 10*3/uL (130-400); RED BLOOD COUNT 5.01 10*6/uL (4.50-5.90); RED CELL DISTRI WIDTH 13.6 % (0-14.5); WHITE BLOOD COUNT 11.1 10*3/uL (4.8-10.8)
[2017-12-04 11:06] LABS: ACT PARTIAL THROMBO TIME 24.4 SECONDS (20.8-31.5)
[2017-12-04 11:16] LABS: ALBUMIN 3.8 gm/dl (3.1-4.5); ALKALINE PHOSPHATASE 64 U/L (45-117); BUN 13 mg/dl (7-24); CHLORIDE 100 mmol/L (98-107); CREATININE 0.83 mg/dL (0.70-1.30); LIPASE 122 U/L (73-393); POTASSIUM 4.1 mmol/L (3.5-5.1); SGOT/AST 19 IU/L (3-35); SGPT/ALT 20 U/L (12-78); SODIUM 136 mmol/L (136-145); TOTAL PROTEIN 7.4 gm/dL (6.4-8.2)
[2017-12-04 11:22] LABS: BILIRUBIN NEGATIVE (NEGATIVE); BLOOD NEGATIVE (NEGATIVE); CLARITY CLEAR (CLEAR); COLOR YELLOW (YELLOW); GLUCOSE NEGATIVE (NEGATIVE); KETONE NEGATIVE (NEGATIVE); LEUKO ESTERASE TRACE (NEGATIVE); NITRITE NEGATIVE (NEGATIVE); PH 5.5 (5.0-9.0); SPECIFIC GRAVITY 1.015 (1.005-1.030); UROBILINOGEN 0.2 E.U./dl (0.2-1.0)
[2017-12-04 11:28] LABS: BACTERIA TRACE; MUCOUS TRACE
[2017-12-04 12:16] VITALS: BP 150/83
== END 2017-12-04 12:18 | disposition home or self-care (01) ==
LOC: ED 10:36
PROVIDERS: Emergency Medicine
DX: R10.31 Right lower quadrant pain (principal); F17.200 Nicotine dependence, unspecified, uncomplicated; M19.90 Unspecified osteoarthritis, unspecified site; Z98.890 Other specified postprocedural states; Z79.899 Other long term (current) drug therapy; Z88.0 Allergy status to penicillin